=== PATIENT | female | born 1965 | race Caucasian/White ===

== ENCOUNTER 2016-12-02 10:49 | Inpatient (IN) | payer BC ==
[~2016-12-02] VITALS: Ht 160 cm; Wt 81.2 kg
[~2016-12-02 10:49] MED LIST: HYDR-79 PO; ONDA8TAB12 PO
[2016-12-02] MEDS ORDERED: IV NORMAL SALINE 1,000ML 1,000 ML IV SCH (11:10)
--- NOTE | 2016-12-02 11:13 | PHYS DOC ---
Past History Past Medical History: No Pertinent History, Other Past Surgical History: Cholecystectomy, Other Additional Past Surgical Histo: bariatric surgery Smoking: Cigarettes Alcohol Use: Occasionally Drug Use: Marijuana Adult General Chief Complaint Chief Complaint: NAUSEA/VOMITING/DIARRHEA HPI HPI Patient is a pleasant 51-year-old female with no major medical problems other than hypothyroidism on replacement therapy and depression, who presents with a 3 to four-day history of nausea vomiting diarrhea. She describes 3-4 episodes of nausea and vomiting nonbilious nonbloody and 3-4 episodes of nonbloody nonmucoid stool daily for last 3-4 days. She's had subjective fevers and chills with decreased oral intake secondary to inability tolerate fluids because of her gastric restrictive surgery she feels that she is dehydrated and unable to keep up with the vomiting episodes. Patient denies any particular sick contacts , travel outside the country, exposure to antibiotics or raw food consumption of fish, poultry or the handling of reptiles. She feels generally weak although she has no real abdominal pain, chest pain, shortness of breath and fatigue patient feels rundown Dr. Don is PCP Review of Systems Review of Systems Constitutional: Subjective for fevers and chills Eyes: Denies change in visual acuity, redness, or eye pain [] HENT: Denies nasal congestion or sore throat [] Respiratory: Denies cough or shortness of breath [] Cardiovascular: No additional information not addressed in HPI [] GI: Denies abdominal pain, but is having nausea vomiting nonbilious nonbloody, non-bloody or mucoid stool described as loose : Denies dysuria or hematuria [] Musculoskeletal: Denies back pain or joint pain [] Integument: Denies rash or skin lesions [] Neurologic: Denies headache, focal weakness or sensory changes [] Endocrine: Denies polyuria or polydipsia [] Current Medications Current Medications Current Medications Medications (Trade) Dose Ordered Sig/Vikas Start Time Stop Time Status Last Admin Dose Admin Ondansetron HCl (Zofran) 4 mg 1X ONCE 12/02/16 11:15 12/02/16 11:16 UNV Sodium Chloride (Normal Saline Flush) 10 ml QSHIFT PRN 12/02/16 11:15 UNV Allergies Allergies Allergies Coded Allergies Type Severity Reaction Last Updated Verified No Known Drug Allergies 01/03/16 No Physical Exam Physical Exam Patient noted to have hypertension and tachycardia Constitutional: Well developed, well nourished, no acute distress, non-toxic appearance. [] HENT: Normocephalic, atraumatic, bilateral external ears normal, oropharynx is dry, no oral exudates, nose normal. [] Eyes: PERRLA, EOMI, conjunctiva normal, Neck: Normal range of motion, no tenderness, supple, no stridor. [] Cardiovascular:Heart rate tachycardic regular rhythm normal heart sounds without murmurs gallops or rubs Lungs & Thorax: Bilateral breath sounds clear to auscultation [] Abdomen: Bowel sounds hyperactive soft nontender no masses no pulsatile masses no guarding rebound or organomegaly. Skin: Warm, dry, no erythema, no rash. [] Back: No tenderness, no CVA tenderness. [] Extremities: No tenderness, no cyanosis, no clubbing, ROM intact, no edema. [] Neurologic: Alert and oriented X 3, normal motor function, normal sensory function, no focal deficits noted. [] Psychologic: Affect normal, judgement normal, mood normal. [] EKG EKG [] Radiology/Procedures Radiology/Procedures [] Course & Med Decision Making Course & Med Decision Making Pertinent Labs and Imaging studies reviewed. (See chart for details) She presents with nausea vomiting diarrhea that began 4 days ago. She's had subjective fevers and chills and she is tachycardic because she has decreased oral intake. She takes alcohol on occasion she's never had a history of delirium tremens or other withdrawal symptoms. She's had a prior cholecystectomy and bariatric surgery but still complains of nonbilious nonbloody vomiting without epigastric pain. Time is now 12:30 pm Patient tells me that their symptoms given during CC are improved. Patient unfortunately has a low potassium of 2.7 likely secondary to emesis but unfortunately patient's. Lipase is elevated at 1200+. Patient has improved nausea without vomiting or diarrhea here in the emergency department but given her dehydration based on her urine creatinine it is my estimation the patient would benefit from GI evaluation, fluids and antiemetics as well as pain control. Differential diagnosis for pancreatitis includes but not limited to biliary tract disease, alcohol, drugs, scorpion bites, hyperlipidemia, instrumentation, trauma, Plate Glass Installer Helper note: Dr. Fuller Plate Glass Installer Helper called at of the service paged initially 12:39 PM Consult called back at 12:40 PM Discussed the case I presented and they agreed with admission. Time of acceptance 12:40 PM the plan is to keep patient nothing by mouth replace fluids and a electrolytes by intravenous means provide her pain medications and possible GI evaluation here in the hospital. [] Dragon Disclaimer Dragon Disclaimer This chart was dictated in whole or in part using Voice Recognition software in a busy, high-work load, and often noisy Emergency Department environment. It may contain unintended and wholly unrecognized errors or omissions. Departure Departure: Impression: Primary Impression: Pancreatitis Additional Impressions: Intractable nausea and vomiting Diarrhea Abdominal pain Hypokalemia Dehydration Disposition: 09 ADMITTED INPATIENT Admitting Physician: Kimberly Fuller Referrals: JOSEMANUEL KNAPP (PCP) Problem Qualifiers TAMMIE MAGAÑA MD Dec 02, 2016 11:13
[2016-12-02] MEDS ORDERED: 0.9 % SODIUM CHLORIDE 10 ML DISP.SYRIN. IV PRN (11:15)
[2016-12-02] MEDS ORDERED: ONDANSETRON PF 4 MG/2 ML VIAL. IV ONE (11:15)
[2016-12-02 11:32] LABS: BASO % 0 % (0-3); EOS % 0 % (0-3); LYMPH # 1.2 x10^3/uL (1.0-4.8); LYMPH % 14 % (24-48); MEAN CORPUSCULAR HEMOGLOBIN 30 pg (25-35); MEAN CORPUSCULAR HGB CONC 35 g/dL (31-37); MEAN CORPUSCULAR VOLUME 85 fL (79-100); MONO # 1.1 x10^3/uL (0.0-1.1); MONO % 13 % (0-9); NEUT # 6.4 x10^3uL (1.8-7.7); NEUT % 73 % (31-73); PLATELET COUNT 162 x10^3/uL (140-400); RED BLOOD COUNT 5.64 x10^6/uL (3.50-5.40); RED CELL DISTRIBUTION WIDTH 12.8 % (11.5-14.5); WHITE BLOOD COUNT 8.7 x10^3/uL (4.0-11.0)
[2016-12-02 11:42] LABS: ALBUMIN 3.9 g/dL (3.4-5.0); CALCIUM 9.7 mg/dL (8.5-10.1); CREATININE 1.1 mg/dL (0.6-1.0); GFR 52.2; TOTAL BILIRUBIN 0.4 mg/dL (0.2-1.0); TOTAL PROTEIN 7.9 g/dL (6.4-8.2)
[2016-12-02 11:45] LABS: POTASSIUM 2.7 mmol/L (3.5-5.1)
[2016-12-02] MEDS ORDERED: POTASSIUM CHLORIDE 20 MEQ TABLET.ER. PO ONE (12:45)
[2016-12-02 12:49] LABS: BACTERIA,URINE FEW /HPF (0-FEW); BILIRUBIN,URINE NEG (NEG); CLARITY,URINE CLOUDY; COLOR,URINE AMBER; GLUCOSE,URINE NEG (NEG); NITRITE,URINE NEG (NEG); UROBILINOGEN,URINE 0.2 mg/dL (0.2 mg/dL)
[2016-12-02 12:50] LABS: GRANULAR CASTS,URINE OCC /HPF; HYALINE CASTS, URINE MOD /HPF; SQUAMOUS EPITHELIAL CELL,UR FEW /LPF
[2016-12-02] MEDS ORDERED: HYDROmorphone PF 1 MG/ML DISP.SYRIN IV PRN (13:15)
[2016-12-02] MEDS ORDERED: ONDANSETRON PF 4 MG/2 ML VIAL. IV PRN (13:15)
[2016-12-02] MEDS: IV NORMAL SALINE 1,000ML 1,000 ML IV SCH ×2 (13:15→20:35)
[2016-12-02] MEDS: NICOTINE 21MG PATCH. TD SCH (14:30)
[2016-12-02 15:00] VITALS: BP 127/81
[2016-12-02] MEDS ORDERED: ARIP10TA9 PO (15:35)
[2016-12-02] MEDS ORDERED: SERT50TA PO (15:35)
[2016-12-02] MEDS ORDERED: LEVO175T5 PO (15:35)
[2016-12-02] MEDS ORDERED: ALPR0.5T PO (15:35)
[2016-12-02] MEDS ORDERED: chlordiazePOXIDE HCL 25 MG CAPSULE PO PRN ×2 (16:45)
[2016-12-02] MEDS: MVI, ADULT NO.4 WITH VIT K 10 ML, FOLIC ACID 1 MG, THIAMINE 100 MG, POTASSIUM CHLORIDE ... IV SCH ×5 (16:52)
[2016-12-02 17:53] VITALS: BP 129/81
[2016-12-02 18:23] LABS: ALBUMIN 3.3 g/dL (3.4-5.0); DIRECT BILIRUBIN 0.1 mg/dL (0.0-0.2); TOTAL BILIRUBIN 0.3 mg/dL (0.2-1.0); TOTAL PROTEIN 6.6 g/dL (6.4-8.2)
[2016-12-02] MEDS: ALPRAZolam 0.5 MG TABLET PO SCH (18:34)
[2016-12-02 19:28] VITALS: BP 130/85
[2016-12-02] MEDS: POTASSIUM CHLORIDE 20 MEQ TABLET.ER. PO SCH (20:33)
[2016-12-02] MEDS: ARIPiprazole 10 MG TABLET PO SCH (20:33)
[2016-12-02 23:15] VITALS: BP 123/59
[2016-12-03] MEDS: IV NORMAL SALINE 1,000ML 1,000 ML IV SCH ×2 (02:49→09:04)
[2016-12-03 05:45] VITALS: BP 140/88
[2016-12-03 06:17] LABS: ALBUMIN 2.9 g/dL (3.4-5.0); ALBUMIN/GLOBULIN RATIO 0.9 (1.0-1.7); CALCIUM 8.5 mg/dL (8.5-10.1); CREATININE 0.6 mg/dL (0.6-1.0); POTASSIUM 3.5 mmol/L (3.5-5.1); TOTAL BILIRUBIN 0.3 mg/dL (0.2-1.0)
[2016-12-03 06:19] LABS: BASO % 0 % (0-3); EOS % 0 % (0-3); LYMPH # 1.4 x10^3/uL (1.0-4.8); LYMPH % 20 % (24-48); MEAN CORPUSCULAR HEMOGLOBIN 30 pg (25-35); MEAN CORPUSCULAR HGB CONC 35 g/dL (31-37); MEAN CORPUSCULAR VOLUME 86 fL (79-100); MONO # 0.9 x10^3/uL (0.0-1.1); MONO % 13 % (0-9); NEUT # 4.8 x10^3uL (1.8-7.7); NEUT % 67 % (31-73); PLATELET COUNT 152 x10^3/uL (140-400); RED BLOOD COUNT 4.66 x10^6/uL (3.50-5.40); RED CELL DISTRIBUTION WIDTH 12.7 % (11.5-14.5); WHITE BLOOD COUNT 7.1 x10^3/uL (4.0-11.0)
[2016-12-03] MEDS: LEVOTHYROXINE 175 MCG TABLET PO SCH (07:50)
[2016-12-03] MEDS: ARIPiprazole 10 MG TABLET PO SCH ×3 (07:50→21:52)
[2016-12-03] MEDS: POTASSIUM CHLORIDE 20 MEQ TABLET.ER. PO SCH ×2 (07:51→18:02)
[2016-12-03] MEDS: NICOTINE 21MG PATCH. TD SCH (07:51)
[2016-12-03] MEDS ORDERED: MVI, ADULT NO.4 WITH VIT K 10 ML, THIAMINE 100 MG, FOLIC ACID 1 MG in IV NORMAL SALINE ... IV SCH ×4 (09:00)
[2016-12-03] MEDS ORDERED: PNEUMOC CONJ VACC 23-VALENT 0.5 ML VIAL. VAX IM ONE (09:00)
[2016-12-03] MEDS ORDERED: SERTRALINE 50 MG TABLET. PO SCH ×2 (09:00)
[2016-12-03] MEDS ORDERED: FLU VACC QS2017-18 (36MOS+)/PF 0.5 ML SYRINGE. VAX IM ONE (09:00)
--- NOTE | 2016-12-03 09:40 | HP ---
ADMIT DATE: 12/02/2016 CHIEF COMPLAINT: Nausea, vomiting, and diarrhea. HISTORY OF PRESENT ILLNESS: This is a 51-year-old female who presented to the Emergency Room with 3-4 day history of nausea, vomiting, diarrhea, chills, sweats, and fever. Denies abdominal pain. Because she has a gastric sleeve and was unable to keep up with her fluids, felt she was dehydrated and so came to the hospital. PAST MEDICAL HISTORY: The patient has hypothyroidism, history of morbid obesity, and Depression. PAST SURGICAL HISTORY: Bariatric sleeve 06/2016. She actually has lost 45 pounds. MEDICATIONS: Reviewed and are available on the MAR. 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 She does have significant problem with alcohol drinking 6-8 drinks a day. She is a former alcoholic and then has had a relapse. She smokes 1 pack per day and also smokes marijuana. REVIEW OF SYSTEMS: As per HPI, but has continued to have some depression and difficulty giving up alcohol, has lost 45 pounds from the gastric sleeve. OBJECTIVE: VITAL SIGNS: Blood pressure 140/88, pulse 77, respirations 18, pulse ox 99% on room air, height 63 inches, and weight 176.31 pounds. GENERAL: Pleasant 51-year-old in no acute distress. HEENT: Her hearing is normal. Her pupils were equal, round, and react to light. Extraocular muscles are intact. Nose is patent. Throat was clear. Tongue was moist. NECK: Supple. LUNGS: Clear to auscultation. CARDIOVASCULAR: Regular rhythm and rate. ABDOMEN: Soft. Bowel sounds are active. No tenderness was palpated. EXTREMITIES: Without edema. NEUROLOGIC: No tremors noted. She is alert and oriented. LABORATORY DATA: CBC, hemoglobin 14.0, hematocrit 40.0 down from 17.0 and 48.0. Chemistry, initial potassium was 2.7 and now is 3.5; magnesium 1.8, lipase has gone from 1283 to 3150. Urinalysis is negative. HCG negative. ASSESSMENT: 1. Acute gastroenteritis with nausea, vomiting, and diarrhea 2. Alcohol use disorder. 3. Questionable pancreatitis-the patient has no abdominal pain, but we will check a CT scan as her lipase is doubled. 4. Hypothyroidism-present on admission. 5. Marijuana use. 6. Tobacco use disorder. 7. History of morbid obesity now with bariatric sleeve. PLAN: IV fluids and alcohol withdrawal protocol. Counseled regarding daily alcohol use and will be getting a CAT scan of the abdomen. GEENA ELIZALDE DO DR: LENARD/maureen JOB#: [id number] / [id number]
[2016-12-03] MEDS ORDERED: ALPRAZolam 0.5 MG TABLET PO PRN (10:30)
[2016-12-03 12:31] VITALS: BP 109/72
--- NOTE | 2016-12-03 12:52 | RAD ---
CT abdomen/pelvis Indication: Pancreatitis, increased lipase. Technique: CT abdomen/pelvis with 75 mL of Omnipaque 300 and 30 mL of Omnipaque 240 by mouth with multi planar reformats. Comparison: None Findings: Heart is normal in size. No pericardial or pleural effusion. Mild subsegmental atelectasis in the lung bases. Liver is normal in morphology. Spleen within normal limits. Status post cholecystectomy. Adrenal glands within normal limits. Kidneys within normal limits. No peripancreatic inflammatory changes or focal pancreatic mass. Mild prominence of pancreatic duct without apparent dilation. No peripancreatic fluid collection. The pancreas demonstrates diffuse homogeneous enhancement. The portal vein, splenic vein, splenic artery, SMV are patent. Shotty mesenteric and retroperitoneal lymph nodes. Right lower quadrant lymph nodes noted which are enlarged, the larges measuring 1.4 x 1.0 cm (series 2 image 80). No bowel obstruction. Appendix is not visualized. Postsurgical changes from partial gastrectomy. The uterus is nonvisualized likely surgically absent. Bladder is decompressed limiting optimal evaluation. No solid adnexal lesions. No suspicious bony lesions. Impression: 1. No peripancreatic inflammatory changes or fluid collection. 2. Mildly enlarged right lower quadrant lymph nodes may suggest mesenteric adenitis. Clinically correlate. PQRS Compliance Statement: One or more of the following individualized dose reduction techniques were utilized for this examination: 1. Automated exposure control 2. Adjustment of the mA and/or kV according to patient size 3. Use of iterative reconstruction technique
[2016-12-03] MEDS: LOPERAMIDE 2 MG CAPSULE PO PRN ×2 (14:06→18:06)
[2016-12-03] MEDS: ALPRAZolam 0.25 MG TABLET PO PRN ×2 (14:35→18:45)
[2016-12-03] MEDS: ALPRAZolam 0.5 MG TABLET PO SCH (16:00)
[2016-12-03] MEDS: MVI, ADULT NO.4 WITH VIT K 10 ML, FOLIC ACID 1 MG, THIAMINE 100 MG, POTASSIUM CHLORIDE ... IV SCH ×5 (18:02)
[2016-12-03 19:01] VITALS: BP 139/81
[2016-12-04 06:35] LABS: BASO % 0 % (0-3); EOS % 0 % (0-3); HEMATOCRIT 40.9 % (36.0-47.0); HEMOGLOBIN 14.3 g/dL (12.0-15.5); LYMPH # 1.2 x10^3/uL (1.0-4.8); LYMPH % 20 % (24-48); MEAN CORPUSCULAR HEMOGLOBIN 30 pg (25-35); MEAN CORPUSCULAR HGB CONC 35 g/dL (31-37); MEAN CORPUSCULAR VOLUME 85 fL (79-100); MONO % 16 % (0-9); NEUT # 3.9 x10^3uL (1.8-7.7); NEUT % 63 % (31-73); PLATELET COUNT 173 x10^3/uL (140-400); RED CELL DISTRIBUTION WIDTH 12.9 % (11.5-14.5); WHITE BLOOD COUNT 6.1 x10^3/uL (4.0-11.0)
[2016-12-04 06:43] LABS: ALBUMIN 3.1 g/dL (3.4-5.0); ALBUMIN/GLOBULIN RATIO 0.9 (1.0-1.7); CREATININE 0.6 mg/dL (0.6-1.0); MAGNESIUM 1.7 mg/dL (1.8-2.4); TOTAL BILIRUBIN 0.3 mg/dL (0.2-1.0); TOTAL PROTEIN 6.4 g/dL (6.4-8.2)
[2016-12-04 07:45] VITALS: BP 115/64
[2016-12-04] MEDS: ARIPiprazole 10 MG TABLET PO SCH (07:52)
[2016-12-04] MEDS: LEVOTHYROXINE 175 MCG TABLET PO SCH (08:01)
[2016-12-04] MEDS: POTASSIUM CHLORIDE 20 MEQ TABLET.ER. PO SCH (08:01)
[2016-12-04] MEDS: NICOTINE 21MG PATCH. TD SCH (08:02)
[2016-12-04] MEDS ORDERED: Nicotine 21MG TD (08:40)
[2016-12-04] MEDS ORDERED: ALPR0.254 PO (08:40)
[2016-12-04] MEDS ORDERED: SERTRALINE 100 MG TABLET. PO SCH (09:00)
[2016-12-04] MEDS ORDERED: PNEUMOC CONJ VACC 23-VALENT 0.5 ML VIAL. VAX IM ONE (09:00)
[2016-12-04] MEDS ORDERED: FLU VACC QS2017-18 (36MOS+)/PF 0.5 ML SYRINGE. VAX IM ONE (09:00)
--- NOTE | 2016-12-04 13:53 | DS ---
DATE OF DISCHARGE: 12/04/2016 DISCHARGE DIAGNOSES: 1. Nausea, vomiting and diarrhea, resolved. 2. Acute pancreatitis. 3. Alcohol use disorder. 4. Depression. 5. Marijuana use. 6. Daily alcohol use. 7. History of morbid obesity status post gastric sleeve. 8. Hypothyroidism, present on admission. 9. Dehydration, resolved. 10. Hypokalemia, resolved. HOSPITAL COURSE: A 51-year-old female who presented to the Emergency Room with a 3 to 4 day history of nausea, vomiting, diarrhea and chills. She was found to be dehydrated and have an elevated lipase. The lipase actually doubled the next day, but she had minimal abdominal pain and just mesenteric adenitis on her CAT scan. However, with her drinking history, this seems probable diagnosis of acute pancreatitis. She was on clear liquids for the most of her stay because she could not tolerate a solid diet. I discussed extensively her alcohol use, her depression and her marijuana use, and the options for that. I encouraged her to see ____ for alcoholism and she seemed interested in that. I gave her 20 Xanax 0.25 to help her with any further withdrawal from alcohol that she may have this week. For further refills, she will have to see ____. She left in good condition and for medication, see [facility]. GEENA ELIZALDE DO DR: LENARD/maureen JOB#: [id number] / [id number]
== END 2016-12-04 09:24 | disposition home or self-care (01) | DRG 440 ==
LOC: ER 10:49 → ICU 13:09
PROVIDERS: ADMIT Internal Medicine; ATTEND Internal Medicine
DX: K85.90 Acute pancreatitis without necrosis or infection, unspecified (principal); E66.01 Morbid (severe) obesity due to excess calories; E03.9 Hypothyroidism, unspecified; E86.0 Dehydration; E87.6 Hypokalemia; I88.0 Nonspecific mesenteric lymphadenitis; F12.90 Cannabis use, unspecified, uncomplicated; F17.210 Nicotine dependence, cigarettes, uncomplicated; F32.9 Major depressive disorder, single episode, unspecified; Z98.84 Bariatric surgery status; Z68.31 Body mass index [BMI] 31.0-31.9, adult; Z90.49 Acquired absence of other specified parts of digestive tract; Z72.89 Other problems related to lifestyle; Z71.41 Alcohol abuse counseling and surveillance of alcoholic
CPT/HCPCS: 36415; 74177; 80053; 80076; 81001; 81025; 83690; 83735; 84478; 85025; 87177; 87324; 87641; 90686; 90732; 96361; 96374; 99406; J2405; 99285-25; J7030

== ENCOUNTER 2018-02-24 20:06 | Emergency (ER) | payer BC ==
[~2018-02-24] VITALS: Ht 160 cm; Wt 71.2 kg
[~2018-02-24 20:06] MED LIST changes: +ALPR0.254 PO; +ALPR0.5T PO; +ARIP10TA9 PO; +HYDR-1179 PO; -HYDR-79 PO; +LEVO175T5 PO; +Nicotine 21MG TD; +SERT50TA PO
[2018-02-24] MEDS: LOPERAMIDE 2 MG CAPSULE PO ONE (20:41)
[2018-02-24] MEDS: ONDANSETRON PF 4 MG/2 ML VIAL. IV ONE (20:41)
[2018-02-24] MEDS: IV NORMAL SALINE 1,000ML 1,000 ML IV ONE (20:41)
--- NOTE | 2018-02-24 20:43 | PHYS DOC ---
Past History Past Medical History: Depression, GERD, Hypothyroid Past Surgical History: Cholecystectomy, Other Additional Past Surgical Histo: bariatric surgery Smoking: Cigarettes Alcohol Use: Rarely Drug Use: None Adult General Chief Complaint Chief Complaint: NAUSEA/VOMITING/DIARRHEA HPI HPI 52-year-old female presents with diarrhea, vomiting, and epigastric abdominal pain. Patient states that she has had watery diarrhea all day. About 2 hours ago she began have vomiting followed by upper abdominal cramping. She states that it feels like her stomach is churning or having spasms. She does not recall having pain like this before. She does not have a gallbladder. She had gastric sleeve many years ago. She takes omeprazole daily. She does not typically have trouble with reflux. Patient does not have any known sick contacts. She has had pancreatitis due to alcohol in the past. She stopped drinking alcohol 18 days ago. She has not taken any medications for her current ailment. She denies fever or chills. Review of Systems Review of Systems Constitutional: Denies fever or chills [] Eyes: Denies change in visual acuity, redness, or eye pain [] HENT: Denies nasal congestion or sore throat [] Respiratory: Denies cough or shortness of breath [] Cardiovascular: No additional information not addressed in HPI [] GI: Abdominal pain, nausea, vomiting, watery diarrhea [] : Denies dysuria or hematuria [] Musculoskeletal: Denies back pain or joint pain [] Integument: Denies rash or skin lesions [] Neurologic: Denies headache, focal weakness or sensory changes [] Endocrine: Denies polyuria or polydipsia [] All other systems were reviewed and found to be within normal limits, except as documented in this note. Current Medications Current Medications Current Medications Medications (Trade) Dose Ordered Sig/Vikas Start Time Stop Time Status Last Admin Dose Admin Loperamide HCl (Imodium) 2 mg 1X ONCE 02/24/18 20:30 02/24/18 20:31 DC Ondansetron HCl (Zofran) 4 mg 1X ONCE 02/24/18 20:30 02/24/18 20:31 DC Sodium Chloride 1,000 ml @ 1,000 mls/hr 1X ONCE 02/24/18 20:30 02/24/18 21:29 Allergies Allergies Allergies Coded Allergies Type Severity Reaction Last Updated Verified No Known Drug Allergies 01/03/16 No Physical Exam Physical Exam Constitutional: Well developed, well nourished, no acute distress, non-toxic appearance. [] HENT: Normocephalic, atraumatic, bilateral external ears normal, oropharynx moist, no oral exudates, nose normal. [] Eyes: PERRLA, EOMI, conjunctiva normal, no discharge. [] Neck: Normal range of motion, no tenderness, supple, no stridor. [] Cardiovascular:Heart rate regular rhythm, no murmur [] Lungs & Thorax: Bilateral breath sounds clear to auscultation [] Abdomen: Soft, mild epigastric tenderness, no masses, no pulsatile masses. [] Skin: Warm, dry, no erythema, no rash. [] Back: No tenderness, no CVA tenderness. [] Extremities: No tenderness, no cyanosis, no clubbing, ROM intact, no edema. [] Neurologic: Alert and oriented X 3, normal motor function, normal sensory function, no focal deficits noted. [] Psychologic: Affect normal, judgement normal, mood normal. [] EKG EKG [] Radiology/Procedures Radiology/Procedures [] Impressions: INDICATION: EPIGASTRIC ABDOMINAL PAIN, CRAMPING, DIARRHEA ONSET TODAY. 75MLS OMNI 300 IV CONTRAST COMPARISON: December 2016 TECHNIQUE: Axial CT images obtained through the abdomen and pelvis with contrast. One or more of the following individualized dose reduction techniques were utilized for this examination: 1. Automated exposure control; 2. Adjustment of the mA and/or kV according to patient size; 3. Use of iterative reconstruction technique. FINDINGS: Abdominal aorta is not aneurysmal. Bile duct dilation is seen postcholecystectomy. No peripancreatic fluid collection. Spleen is unremarkable. Urinary bladder is largely decompressed. No left-sided hydronephrosis. No right-sided hydronephrosis. Numerous calcifications in bilateral hemipelvis. There are some mildly prominent lymph nodes in the right lower quadrant. There are few mildly prominent walled loops of small bowel left upper quadrant. Degenerative changes of spine with osteophyte formation. IMPRESSION: 1. Bile duct dilation is identified. This is a common finding post cholecystectomy but does appear more prominent than prior. Would correlate with symptoms and lab markers to ensure that there is not a pathologic process such as a distal stricture or stone. 2. Mild prominence the wall of a few loops of small bowel on the left upper quadrant. Could be a region of contraction but cannot exclude pathologic causes such as enteritis. 3. Numerous calcifications the bilateral hemipelvis. Could be secondary to phleboliths. Electronically signed by: Neeta Neal MD (02/24/2018 10:10 PM) [facility] DICTATED AND SIGNED BY: NEETA NEAL MD DATE: 02/24/182201 CC: FINN VILLEGAS DO; JOSEMANUEL KNAPP ~ Course & Med Decision Making Course & Med Decision Making Pertinent Labs and Imaging studies reviewed. (See chart for details) Asians labs are unremarkable. Her troponin is negative. Her EKG is unremarkable. Her urinalysis is negative for infection. The patient had the pain migrating up into her chest so troponin and EKG were ordered. I give the patient Zofran and 1 mg of Dilaudid for her pain. She was able to fall asleep for a while and when she woke up she stated that her pain was significantly improved. Her CT scan does show possible enteritis. This is likely a viral gastroenteritis. I will discharge her with a prescription for Zofran and recommend supportive care at home. Patient is stable for discharge at this time. [] Dragon Disclaimer Dragon Disclaimer This electronic medical record was generated, in whole or in part, using a voice recognition dictation system. Departure Departure: Referrals: JOSEMANUEL KNAPP (PCP) FINN VILLEGAS DO Feb 24, 2018 20:43
[2018-02-24 21:12] LABS: BASO % 0 % (0-3); EOS % 0 % (0-3); HEMATOCRIT 40.1 % (36.0-47.0); HEMOGLOBIN 13.7 g/dL (12.0-15.5); LYMPH # 0.8 x10^3/uL (1.0-4.8); LYMPH % 8 % (24-48); MEAN CORPUSCULAR HEMOGLOBIN 30 pg (25-35); MEAN CORPUSCULAR HGB CONC 34 g/dL (31-37); MEAN CORPUSCULAR VOLUME 87 fL (79-100); MONO # 0.5 x10^3/uL (0.0-1.1); MONO % 5 % (0-9); NEUT # 8.3 x10^3uL (1.8-7.7); NEUT % 86 % (31-73); PLATELET COUNT 149 x10^3/uL (140-400); RED BLOOD COUNT 4.63 x10^6/uL (3.50-5.40); RED CELL DISTRIBUTION WIDTH 12.7 % (11.5-14.5); WHITE BLOOD COUNT 9.6 x10^3/uL (4.0-11.0)
[2018-02-24 21:24] LABS: ALBUMIN 3.3 g/dL (3.4-5.0); CALCIUM 8.2 mg/dL (8.5-10.1); CREATININE 0.8 mg/dL (0.6-1.0); TOTAL BILIRUBIN 0.3 mg/dL (0.2-1.0); TOTAL PROTEIN 6.5 g/dL (6.4-8.2)
[2018-02-24] MEDS: IOHEXOL 300 MG/ML 75 ML VIAL. IV ONE (21:42)
[2018-02-24] MEDS ORDERED: CONTRAST GIVEN MC PRN (21:45)
[2018-02-24 22:02] LABS: BACTERIA,URINE MOD /HPF (0-FEW); BILIRUBIN,URINE NEG (NEG); CLARITY,URINE HAZY; COLOR,URINE YELLOW; GLUCOSE,URINE NEG (NEG); NITRITE,URINE NEG (NEG); RBC,URINE 0 /HPF (0-2); SQUAMOUS EPITHELIAL CELL,UR FEW /LPF; UROBILINOGEN,URINE 0.2 mg/dL (0.2 mg/dL)
[2018-02-24] MEDS: HYDROmorphone PF 1 MG/ML DISP.SYRIN IV ONE (22:04)
[2018-02-24] MEDS: DICYCLOMINE HCL 20 MG TABLET PO ONE (22:04)
--- NOTE | 2018-02-24 22:09 | EKG ---
[address] [address] Test Date: 2018-02-24 Test Time: 22:01:47 Pat Name: GARRISON NORTON Department: Room: Gender: F Bulk Loader: : 1965 Requested By: FINN VILLEGAS Order Number: [id number] Reading MD: Measurements Intervals Wilsey Rate: 92 P: 127 MD: 152 QRS: 179 QRSD: 94 T: 126 QT: 372 QTc: 465 Interpretive Statements SUPRAVENTRICULAR RHYTHM ABNORMAL RIGHT AXIS DEVIATION QRS(T) CONTOUR ABNORMALITY CONSIDER ANTEROSEPTAL MYOCARDIAL DAMAGE CONSISTENT WITH HIGH LATERAL INFARCT AGE UNDETERMINED ABNORMAL ECG RI6.01 Unconfirmed report No previous ECG available for comparison
--- NOTE | 2018-02-24 22:14 | RAD ---
INDICATION: EPIGASTRIC ABDOMINAL PAIN, CRAMPING, DIARRHEA ONSET TODAY. 75MLS OMNI 300 IV CONTRAST COMPARISON: December 2016 TECHNIQUE: Axial CT images obtained through the abdomen and pelvis with contrast. One or more of the following individualized dose reduction techniques were utilized for this examination: 1. Automated exposure control; 2. Adjustment of the mA and/or kV according to patient size; 3. Use of iterative reconstruction technique. FINDINGS: Abdominal aorta is not aneurysmal. Bile duct dilation is seen postcholecystectomy. No peripancreatic fluid collection. Spleen is unremarkable. Urinary bladder is largely decompressed. No left-sided hydronephrosis. No right-sided hydronephrosis. Numerous calcifications in bilateral hemipelvis. There are some mildly prominent lymph nodes in the right lower quadrant. There are few mildly prominent walled loops of small bowel left upper quadrant. Degenerative changes of spine with osteophyte formation. IMPRESSION: 1. Bile duct dilation is identified. This is a common finding post cholecystectomy but does appear more prominent than prior. Would correlate with symptoms and lab markers to ensure that there is not a pathologic process such as a distal stricture or stone. 2. Mild prominence the wall of a few loops of small bowel on the left upper quadrant. Could be a region of contraction but cannot exclude pathologic causes such as enteritis. 3. Numerous calcifications the bilateral hemipelvis. Could be secondary to phleboliths. Electronically signed by: Ventura Neal MD (02/24/2018 10:10 PM) [facility]
[2018-02-24] MEDS: ASPIRIN 81 MG TAB.CHEW PO ONE (22:20)
[2018-02-24] MEDS ORDERED: ONDA4TAB12 PO (23:15)
[2018-02-24 23:25] VITALS: BP 126/53
[2018-02-24] MEDS ORDERED: TRAM50TA PO (23:32)
--- NOTE | 2018-02-25 01:29 | RAD ---
Chest AP portable 02/24/2018. Reason for exam: Epigastric and chest pain. No infiltrate or effusion is seen. Heart size and pulmonary vascularity appear normal. IMPRESSION: No acute disease. Electronically signed by: Bahman Pirece Jr., MD (02/25/2018 1:25 AM) [facility]
== END 2018-02-24 23:30 | disposition home or self-care (01) ==
LOC: ER 20:06
DX: R10.13 Epigastric pain (principal); R11.2 Nausea with vomiting, unspecified; R19.7 Diarrhea, unspecified; K91.5 Postcholecystectomy syndrome; K21.9 Gastro-esophageal reflux disease without esophagitis; E03.9 Hypothyroidism, unspecified; F17.210 Nicotine dependence, cigarettes, uncomplicated; Z90.49 Acquired absence of other specified parts of digestive tract
CPT/HCPCS: 36415; 71045; 74177; 80053; 81001; 83690; 84484; 85025; 87086; 93005; 96361; 96374; 96375; 99284; J1170; J2405; Q9967; J7030

== ENCOUNTER 2018-11-27 08:58 | Emergency (ER) | payer BC ==
[~2018-11-27] VITALS: Ht 160 cm; Wt 87.5 kg
[~2018-11-27 08:58] MED LIST changes: +ONDA4TAB12 PO; +TRAM50TA PO
[2018-11-27] MEDS ORDERED: IV NORMAL SALINE 1,000ML 1,000 ML IV SCH (09:10)
--- NOTE | 2018-11-27 09:18 | PHYS DOC ---
Past History Past Medical History: Depression, Hypothyroid Past Surgical History: Hysterectomy, Tonsillectomy Additional Past Surgical Histo: bariatric surgery Smoking: Cigarettes Alcohol Use: None Drug Use: None Adult General Chief Complaint Chief Complaint: CHEST PAIN HPI HPI Patient is a 53-year-old female who presents with complaint of left lateral chest discomfort that she describes as sharp and stabbing in nature. Patient states the pain started about 2 weeks ago but was constant since last night. She states that pain is worsened with breathing with certain movements and with palpation. She denies any shortness of breath, nausea or vomiting. Patient states that nothing really helps with the pain. Patient rates pain at a 7 out of 10.[] Review of Systems Review of Systems Constitutional: Denies fever or chills [] Respiratory: Denies cough or shortness of breath [] Cardiovascular: No additional information not addressed in HPI [] GI: Denies abdominal pain, nausea, vomiting or diarrhea [] Musculoskeletal: Patient admits to left-sided mid thoracic pain [] Integument: Denies rash or skin lesions [] Neurologic: Denies headache, focal weakness or sensory changes [] All other systems were reviewed and found to be within normal limits, except as documented in this note. Current Medications Current Medications Current Medications Medications (Trade) Dose Ordered Sig/Vikas Start Time Stop Time Status Last Admin Dose Admin Ketorolac Tromethamine (Toradol 30mg Vial) 30 mg 1X ONCE 11/27/18 09:15 11/27/18 09:16 UNV Sodium Chloride 1,000 ml @ 1,000 mls/hr Q1H 11/27/18 09:10 11/27/18 10:09 UNV Allergies Allergies Allergies Coded Allergies Type Severity Reaction Last Updated Verified No Known Drug Allergies 01/03/16 No Physical Exam Physical Exam Constitutional: Well developed, well nourished, no acute distress, non-toxic appearance. [] HENT: Normocephalic, atraumatic, bilateral external ears normal, oropharynx moist, no oral exudates, nose normal. [] Eyes: PERRLA, EOMI, conjunctiva normal, no discharge. [] Neck: Normal range of motion, no tenderness, supple, no stridor. [] Cardiovascular: Regular rate and rhythm. There is reproducible tenderness to palpation in the lateral and anterior lateral rib margin of rib 9[] Lungs & Thorax: Bilateral breath sounds clear to auscultation [] Abdomen: Bowel sounds normal, soft, no tenderness. [] Skin: Warm, dry, no erythema, no rash. [] Extremities: No tenderness, no cyanosis, no clubbing, ROM intact, no edema. [] Neurologic: Alert and oriented X 3, no focal deficits noted. [] EKG EKG EKG demonstrates normal sinus rhythm with rate of 74.[] Radiology/Procedures Radiology/Procedures [] Impressions: PROCEDURE: PORTABLE CHEST 1V Examination: PORTABLE CHEST 1V History: Chest pain Comparison/Correlation: None Findings: Portable upright frontal view of the chest was obtained. Heart size and pulmonary vasculature are normal. No infiltrate or effusion. Bony structures are unremarkable. No pneumothorax. Impression: No active disease. Electronically signed by: Will Frances MD (11/27/2018 9:45 AM) [facility] Course & Med Decision Making Course & Med Decision Making Pertinent Labs and Imaging studies reviewed. (See chart for details) [] Dragon Disclaimer Dragon Disclaimer This electronic medical record was generated, in whole or in part, using a voice recognition dictation system. Departure Departure: Impression: Primary Impression: Costochondritis Disposition: 01 HOME, SELF-CARE Condition: STABLE Referrals: JOSEMANUEL KNAPP (PCP) Patient Instructions: Costochondritis Scripts Diclofenac Sodium (DICLOFENAC SODIUM) 50 Mg Tablet.dr 1 TAB PO BID PRN for PAIN, #20 TAB Prov: GIOVANNY ADAM Jr. DO 11/27/18 Tramadol Hcl (TRAMADOL HCL) 50 Mg Tablet 50 MG PO PRN Q6HRS PRN for PAIN, #12 TAB Prov: GIOVANNY ADAM Jr. DO 11/27/18 Methylprednisolone (MEDROL) 4 Mg Tab.ds.pk 1 PKG PO UD for inflammation, #1 PKG Prov: GIOVANNY ADAM Jr. DO 11/27/18 GIOVANNY ADAM Jr. DO Nov 27, 2018 09:18
[2018-11-27] MEDS ORDERED: KETOROLAC 30 MG/ML VIAL. IV ONE (09:30)
[2018-11-27 09:40] LABS: BASO % 0 % (0-3); EOS % 0 % (0-3); HEMATOCRIT 43.6 % (36.0-47.0); HEMOGLOBIN 14.8 g/dL (12.0-15.5); LYMPH # 2.2 x10^3/uL (1.0-4.8); LYMPH % 20 % (24-48); MEAN CORPUSCULAR HEMOGLOBIN 29 pg (25-35); MEAN CORPUSCULAR HGB CONC 34 g/dL (31-37); MEAN CORPUSCULAR VOLUME 85 fL (79-100); MONO % 9 % (0-9); NEUT # 7.8 x10^3uL (1.8-7.7); NEUT % 70 % (31-73); PLATELET COUNT 265 x10^3/uL (140-400); RED BLOOD COUNT 5.14 x10^6/uL (3.50-5.40); RED CELL DISTRIBUTION WIDTH 13.1 % (11.5-14.5); WHITE BLOOD COUNT 11.1 x10^3/uL (4.0-11.0)
--- NOTE | 2018-11-27 09:47 | RAD ---
Examination: PORTABLE CHEST 1V History: Chest pain Comparison/Correlation: None Findings: Portable upright frontal view of the chest was obtained. Heart size and pulmonary vasculature are normal. No infiltrate or effusion. Bony structures are unremarkable. No pneumothorax. Impression: No active disease. Electronically signed by: Will Frances MD (11/27/2018 9:45 AM) [facility]
[2018-11-27 10:02] LABS: ALBUMIN 4.2 g/dL (3.4-5.0); ALBUMIN/GLOBULIN RATIO 1.4 (1.0-1.7); CREATININE 1.1 mg/dL (0.6-1.0); GFR 51.8; MAGNESIUM 2.2 mg/dL (1.8-2.4); POTASSIUM 3.8 mmol/L (3.5-5.1); TOTAL BILIRUBIN 0.4 mg/dL (0.2-1.0); TOTAL PROTEIN 7.2 g/dL (6.4-8.2)
[2018-11-27] MEDS ORDERED: DICL50TA4 PO (10:26)
[2018-11-27] MEDS ORDERED: METH4TAB2 PO (10:26)
[2018-11-27] MEDS ORDERED: TRAM50TA PO (10:26)
[2018-11-27 10:47] VITALS: BP 150/106
--- NOTE | 2018-11-27 11:41 | EKG ---
[address] [address] Test Date: 2018-11-27 Test Time: 09:04:05 Pat Name: GARRISON NORTON Department: Room: Gender: F Incoming Inspector: : 1965 Requested By: GIOVANNY ADAM Order Number: [id number] Reading MD: Grzegorz Holcomb MD Measurements Intervals [place] Rate: 74 P: 41 SC: 142 QRS: -8 QRSD: 82 T: 52 QT: 402 QTc: 447 Interpretive Statements SINUS RHYTHM Electronically Signed On 12-08-2018 14:33:53 CDT by Grzegorz Holcomb MD
== END 2018-11-27 11:04 | disposition home or self-care (01) ==
LOC: ER 08:58
DX: M94.0 Chondrocostal junction syndrome [Tietze] (principal); M54.6 Pain in thoracic spine; E03.9 Hypothyroidism, unspecified; F17.210 Nicotine dependence, cigarettes, uncomplicated; Z90.710 Acquired absence of both cervix and uterus
CPT/HCPCS: 36415; 71045; 80053; 83735; 83880; 84484; 85025; 85379; 93005; 96374; 99285; J1885; J7030

== ENCOUNTER 2019-07-19 17:31 | Emergency (ER) | payer BC ==
[~2019-07-19] VITALS: Ht 160 cm; Wt 76.0 kg
[~2019-07-19 17:31] MED LIST changes: +DICL50TA4 PO; +METH4TAB2 PO
[2019-07-19 17:38] VITALS: BP 129/77
[2019-07-19] MEDS ORDERED: LORazepam 1 MG TABLET PO ONE (18:45)
[2019-07-19] MEDS ORDERED: SMZ/TMP 800/160MG TABLET. PO ONE ×2 (19:06→19:15)
[2019-07-19] MEDS ORDERED: SULF1TAB24 PO (19:10)
--- NOTE | 2019-07-19 19:10 | PHYS DOC ---
Past History Past Medical History: Depression, Hypothyroid Past Surgical History: Cholecystectomy, Hysterectomy, Tonsillectomy Additional Past Surgical Histo: bariatric surgery Smoking: Cigarettes Alcohol Use: Rarely Drug Use: None General Adult EDM: Chief Complaint: SKIN RASH/ABSCESS HPI: HPI: 54-year-old female presents with right axillary abscess. It is been growing for the last 3 days. It is now quite painful and she knows that likely needs to be drained. She denies fever chills. She has no other complaints at this time. Review of Systems: Review of Systems: Constitutional: Denies fever or chills Eyes: Denies change in visual acuity HENT: Denies nasal congestion or sore throat Respiratory: Denies cough or shortness of breath Cardiovascular: Denies chest pain or edema GI: Denies abdominal pain, nausea, vomiting, bloody stools or diarrhea : Denies dysuria Musculoskeletal: Denies back pain or joint pain Integument: Abscess right axilla Neurologic: Denies headache, focal weakness or sensory changes Endocrine: Denies polyuria or polydipsia Lymphatic: Denies swollen glands Psychiatric: Denies depression or anxiety Heart Score: Risk Factors: Risk Factors: DM, Current or recent (<one month) smoker, HTN, HLP, family history of CAD, obesity. Risk Scores: Score 0 - 3: 2.5% MACE over next 6 weeks - Discharge Home Score 4 - 6: 20.3% MACE over next 6 weeks - Admit for Clinical Observation Score 7 - 10: 72.7% MACE over next 6 weeks - Early Invasive Strategies Current Medications: Current Meds: Current Medications Medications (Trade) Dose Ordered Sig/[facility] Start Time Stop Time Status Last Admin Dose Admin Lorazepam (Ativan) 1 mg 1X ONCE 07/19/19 18:45 07/19/19 18:51 DC 07/19/19 18:42 1 MG Allergies: Allergies: Allergies Coded Allergies Type Severity Reaction Last Updated Verified No Known Drug Allergies 01/03/16 No Physical Exam: PE: Constitutional: Well developed, well nourished, no acute distress, non-toxic appearance. [] HENT: Normocephalic, atraumatic, bilateral external ears normal, oropharynx moist, no oral exudates, nose normal. [] Eyes: PERRLA, EOMI, conjunctiva normal, no discharge. [] Neck: Normal range of motion, no tenderness, supple, no stridor. [] Cardiovascular: Heart rate regular rhythm, no murmur [] Lungs & Thorax: Bilateral breath sounds clear to auscultation [] Abdomen: Bowel sounds normal, soft, no tenderness, no masses, no pulsatile masses. [] Skin: 2.5 cm fluctuant abscess of the right axilla with 3 cm surrounding cellulitis. [] Back: No tenderness, no CVA tenderness. [] Extremities: No tenderness, no cyanosis, no clubbing, ROM intact, no edema. [] Neurologic: Alert and oriented X 3, normal motor function, normal sensory function, no focal deficits noted. [] Psychologic: Affect normal, judgement normal, mood anxious. [] Current Patient Data: Vital Signs: Vital Signs Date Time Temp Pulse Resp B/P (MAP) Pulse Ox O2 Delivery O2 Flow Rate FiO2 07/19/19 17:38 98.2 98 16 129/77 (94) 98 Room Air EKG: EKG: [] Radiology/Procedures: Radiology/Procedures: [] Course & Med Decision Making: Course & Med Decision Making Pertinent Labs and Imaging studies reviewed. (See chart for details) The patient had an obvious abscess. I was able to drain it. See note below for details. I will treat her with 7 days of Bactrim. The wound culture was sent. [] Randal Disclaimer: Randal Disclaimer: This electronic medical record was generated, in whole or in part, using a voice recognition dictation system. Incision and Drainage Indication: Cellulitis and abscess of the right axilla. Procedure: Verbal consent was obtained from the patient for incision and drainage of her right axillary abscess. The skin was cleaned with alcohol. The area was anesthetized with 1% lidocaine. 2 cc was used. A 4 mm incision was made with an 11 blade scalpel. There was expression of purulent material. A wound culture was obtained. I explored the abscess and broke up loculations with a sterile Q-tip. Further purulent material was expressed. A clean dressing was applied over the wound. Patient will be given her first dose of Bactrim in the ED. The patient tolerated the procedure well. Complications: None. Departure Departure: Impression: Primary Impression: Abscess of axilla, right Disposition: 01 HOME/RESIDENCE PRIOR TO ADM Condition: STABLE Referrals: JOSEMANUEL KNAPP (PCP) Patient Instructions: Abscess, [id number] Scripts Sulfamethoxazole/Trimethoprim (BACTRIM DS TABLET) 1 Each Tablet 1 TAB PO BID for abscess for 7 Days, #14 TAB 0 Refills Prov: FINN VILLEGAS DO 07/19/19 FINN VLILEGAS DO July 19, 2019 19:10
== END 2019-07-19 19:15 | disposition home or self-care (01) ==
LOC: ER 17:31
DX: L02.411 Cutaneous abscess of right axilla (principal); E03.9 Hypothyroidism, unspecified; F17.210 Nicotine dependence, cigarettes, uncomplicated
CPT/HCPCS: 10060; 87070; 99283

== ENCOUNTER → 2020-03-31 | Outpatient (CLI) | payer BC ==
[~2020-03-31] MED LIST changes: +SULF1TAB24 PO
[2020-03-31 14:24] LABS: FREE T4 1.36 ng/dL (0.76-1.46)
[2020-03-31 14:25] LABS: THYROID STIM HORMONE (TSH) 0.021 uIU/mL (0.358-3.740)
== END ==
LOC: LAB 09:41
PROVIDERS: ATTEND Family Medicine
DX: E03.9 Hypothyroidism, unspecified (principal)
CPT/HCPCS: 84439; 84443

== ENCOUNTER 2020-11-17 18:09 | Emergency (ER) | payer BC ==
[~2020-11-17] VITALS: Ht 160 cm; Wt 93.0 kg
[2020-11-17] MEDS ORDERED: IV NORMAL SALINE 1,000ML 1,000 ML IV ONE (18:45)
[2020-11-17] MEDS ORDERED: MORPHINE SULFATE 2 MG/ML DISP.SYRIN. IV ONE (18:45)
[2020-11-17] MEDS ORDERED: IOHEXOL 300 MG/ML 75 ML VIAL. IV ONE (19:00)
[2020-11-17 19:06] LABS: BASO % 0 % (0-3); EOS % 0 % (0-3); HEMATOCRIT 39.9 % (36.0-47.0); HEMOGLOBIN 13.3 g/dL (12.0-15.5); LYMPH # 1.9 x10^3/uL (1.0-4.8); LYMPH % 28 % (24-48); MEAN CORPUSCULAR HEMOGLOBIN 28 pg (25-35); MEAN CORPUSCULAR HGB CONC 33 g/dL (31-37); MEAN CORPUSCULAR VOLUME 84 fL (79-100); MONO % 15 % (0-9); NEUT # 3.8 x10^3uL (1.8-7.7); NEUT % 56 % (31-73); PLATELET COUNT 201 x10^3/uL (140-400); RED BLOOD COUNT 4.77 x10^6/uL (3.50-5.40); RED CELL DISTRIBUTION WIDTH 13.7 % (11.5-14.5); WHITE BLOOD COUNT 6.8 x10^3/uL (4.0-11.0)
[2020-11-17 19:22] LABS: CALCIUM 8.9 mg/dL (8.5-10.1); CREATININE 1.1 mg/dL (0.6-1.0); GFR 51.4; POTASSIUM 3.9 mmol/L (3.5-5.1)
[2020-11-17 19:28] LABS: ALBUMIN 3.5 g/dL (3.4-5.0); ALBUMIN/GLOBULIN RATIO 1.2 (1.0-1.7); DIRECT BILIRUBIN 0.1 mg/dL (0.0-0.2); TOTAL BILIRUBIN 0.3 mg/dL (0.2-1.0); TOTAL PROTEIN 6.5 g/dL (6.4-8.2)
--- NOTE | 2020-11-17 19:32 | RAD ---
CT abdomen and pelvis with contrast PQRS statement: CT scans at this facility use dose reduction including either automated exposure cont rol, iterative reconstructions, and /or weight based radiation dosing via mA and kV modification when appropriate to reduce radiation dose to as low as reasonably achievable. HISTORY: Abdominal pain. Contrast: 75 mL Omnipaque 350 intravenous contrast. Abdomen findings: Biliary ductal dilation most likely due to cholecystectomy. Lung bases unremarkable . Lower lumbar disc disease. Postoperative change of partial vertical sleeve gastrectomy. Small slidi ng hiatal hernia gastroesophageal junction. Kidneys, adrenals, pancreas, spleen and liver are unremar kable. Fluid throughout the large bowel. No obstruction or inflammation the GI tract. No abdominal fl uid or adenopathy. Mild asymmetric right lower quadrant ileocolic mesenteric lymph nodes largest priyanka uring 9 mm. Pelvis findings: Hysterectomy. Ovaries absent. Pelvic phleboliths. Fluid within the rectosigmoid. Tima dder and bones are unremarkable. No fluid or adenopathy in the pelvis. IMPRESSION: 1. Fluid throughout the large bowel could indicate diarrhea. No obstruction or inflammatory changes o f the GI tract. 2. Mild asymmetric increased in number subcentimeter right lower quadrant ileocolic mesenteric lymph nodes could be reactive lymph nodes or sequela of mesenteric adenitis. 3. Small sliding hiatal hernia of the gastroesophageal junction. Electronically signed by: Babak Mary MD (11/17/2020 7:29 PM) [facility]
--- NOTE | 2020-11-17 19:48 | PHYS DOC ---
Past History Past Medical History: Depression, Hypothyroid Additional Past Medical Histor: Pancreatitis 2019 (KT LOMELI) Past Surgical History: Cholecystectomy, Hysterectomy, Tonsillectomy Additional Past Surgical Histo: gastric sleeve ([facility] LOMELI) Smoking: Cigarettes Alcohol Use: None Drug Use: None (KT LOMELI) General Adult EDM: Chief Complaint: ABDOMINAL PAIN Problems: (1) Abdominal pain (2) Diarrhea (KT LOMELI) HPI: HPI: Patient is a 55 year old female who presents with 2-day history of abdominal pain. Patient states her symptoms began yesterday morning when she ate a breakfast burrito. She reports associated bloating and nonbloody diarrhea. She describes the pain as intermittent cramping and tightness. She reports she has had about 10 episodes of diarrhea since her symptom onset. She denies nausea, vomiting, bloody stool, dysuria, hematuria. Patient had an episode of pancreatitis as a result of EtOH use disorder few years ago, but has since quit drinking. Patient reports a surgical history of cholecystectomy and gastric sleeve. She has no other complaints at this time. (KT LOMELI) Review of Systems: Review of Systems: Constitutional: Denies fever or chills Respiratory: Denies cough or shortness of breath Cardiovascular: Denies chest pain or edema GI: See HPI : See HPI Integument: Denies rash, abrasion Neurologic: Denies headache, focal weakness or sensory changes (KT LOMELI) Current Medications: Current Meds: Current Medications Medications (Trade) Dose Ordered Sig/[facility] Start Time Stop Time Status Last Admin Dose Admin Iohexol (Omnipaque 300 Mg/ml) 75 ml 1X ONCE 11/17/20 19:00 11/17/20 19:01 DC 11/17/20 19:12 75 ML Morphine Sulfate (Morphine 2mg Syringe) 2 mg 1X ONCE 11/17/20 18:45 11/17/20 18:46 DC Sodium Chloride 1,000 ml @ 1,000 mls/hr 1X ONCE 11/17/20 18:45 11/17/20 19:44 (KT LOMELI) Allergies: Allergies: Allergies Coded Allergies Type Severity Reaction Last Updated Verified No Known Drug Allergies 11/17/20 No (KT LOMELI) Physical Exam: PE: Constitutional: Well developed, well nourished, no acute distress, non-toxic appearance. [] HENT: Normocephalic, atraumatic, bilateral external ears normal, oropharynx moist, no oral exudates, nose normal. [] Eyes: PERRLA, EOMI, conjunctiva normal, no discharge. [] Neck: Normal range of motion, no tenderness, supple, no stridor. [] Cardiovascular:Heart rate regular rhythm, no murmur [] Lungs & Thorax: Bilateral breath sounds clear to auscultation [] Abdomen: Bowel sounds normal, soft, no tenderness, no masses, no pulsatile masses. [] Skin: Warm, dry, no erythema, no rash. [] Back: No tenderness, no CVA tenderness. [] Extremities: No tenderness, no cyanosis, no clubbing, ROM intact, no edema. [] Neurologic: Alert and oriented X 3, normal motor function, normal sensory function, no focal deficits noted. [] Psychologic: Affect normal, judgement normal, mood normal. [] (KT LOMELI) Current Patient Data: Labs: Laboratory Tests Test 11/17/20 18:50 White Blood Count 6.8 x10^3/uL (4.0-11.0) Red Blood Count 4.77 x10^6/uL (3.50-5.40) Hemoglobin 13.3 g/dL (12.0-15.5) Hematocrit 39.9 % (36.0-47.0) Mean Corpuscular Volume 84 fL (79-100) Mean Corpuscular Hemoglobin 28 pg (25-35) Mean Corpuscular Hemoglobin Concent 33 g/dL (31-37) Red Cell Distribution Width 13.7 % (11.5-14.5) Platelet Count 201 x10^3/uL (140-400) Neutrophils (%) (Auto) 56 % (31-73) Lymphocytes (%) (Auto) 28 % (24-48) Monocytes (%) (Auto) 15 % (0-9) H Eosinophils (%) (Auto) 0 % (0-3) Basophils (%) (Auto) 0 % (0-3) Neutrophils # (Auto) 3.8 x10^3uL (1.8-7.7) Lymphocytes # (Auto) 1.9 x10^3/uL (1.0-4.8) Monocytes # (Auto) 1.0 x10^3/uL (0.0-1.1) Eosinophils # (Auto) 0.0 x10^3/uL (0.0-0.7) Basophils # (Auto) 0.0 x10^3/uL (0.0-0.2) Sodium Level 140 mmol/L (136-145) Potassium Level 3.9 mmol/L (3.5-5.1) Chloride Level 106 mmol/L (98-107) Carbon Dioxide Level 25 mmol/L (21-32) Anion Gap 9 (6-14) Blood Urea Nitrogen 14 mg/dL (7-20) Creatinine 1.1 mg/dL (0.6-1.0) H Estimated GFR (Cockcroft-Gault) 51.4 BUN/Creatinine Ratio 13 (6-20) Glucose Level 87 mg/dL (70-99) Calcium Level 8.9 mg/dL (8.5-10.1) Total Bilirubin 0.3 mg/dL (0.2-1.0) Direct Bilirubin 0.1 mg/dL (0.0-0.2) Aspartate Amino Transferase (AST) 109 U/L (15-37) H Alanine Aminotransferase (ALT) 77 U/L (14-59) H Alkaline Phosphatase 216 U/L (46-116) H Total Protein 6.5 g/dL (6.4-8.2) Albumin 3.5 g/dL (3.4-5.0) Albumin/Globulin Ratio 1.2 (1.0-1.7) Lipase 106 U/L (73-393) Vital Signs: Vital Signs Date Time Temp Pulse Resp B/P (MAP) Pulse Ox O2 Delivery O2 Flow Rate FiO2 11/17/20 18:15 98.1 86 20 139/89 (106) 98 Room Air (KT LOMELI) EKG: EKG: [] (KT LOMELI) Radiology/Procedures: Radiology/Procedures: PROCEDURE: CT ABD PELV W/ IV CONTRST ONLY CT abdomen and pelvis with contrast PQRS statement: CT scans at this facility use dose reduction including either automated exposure control, iterative reconstructions, and /or weight based radiation dosing via mA and kV modification when appropriate to reduce radiation dose to as low as reasonably achievable. HISTORY: Abdominal pain. Contrast: 75 mL Omnipaque 350 intravenous contrast. Abdomen findings: Biliary ductal dilation most likely due to cholecystectomy. Lung bases unremarkable. Lower lumbar disc disease. Postoperative change of partial vertical sleeve gastrectomy. Small sliding hiatal hernia gastroesophageal junction. Kidneys, adrenals, pancreas, spleen and liver are unremarkable. Fluid throughout the large bowel. No obstruction or inflammation the GI tract. No abdominal fluid or adenopathy. Mild asymmetric right lower quadrant ileocolic mesenteric lymph nodes largest measuring 9 mm. Pelvis findings: Hysterectomy. Ovaries absent. Pelvic phleboliths. Fluid within the rectosigmoid. Bladder and bones are unremarkable. No fluid or adenopathy in the pelvis. IMPRESSION: 1. Fluid throughout the large bowel could indicate diarrhea. No obstruction or inflammatory changes of the GI tract. 2. Mild asymmetric increased in number subcentimeter right lower quadrant ileocolic mesenteric lymph nodes could be reactive lymph nodes or sequela of mesenteric adenitis. 3. Small sliding hiatal hernia of the gastroesophageal junction. Electronically signed by: Babak Mary MD (11/17/2020 7:29 PM) [facility] ([facility] Heart Score: C/O Chest Pain: No (KT LOMELI) Course & Med Decision Making: Course & Med Decision Making Pertinent Labs and Imaging studies reviewed. (See chart for details) Patient history and presentation is nonspecific and could be due to a number of abdominal pathologies. Patient has already had her gallbladder removed, so cholestasis is not a concern. Blood work will be drawn and an abdominal CT with IV contrast only will be ordered to evaluate abdominal pathology. Patient's lab work shows some elevated liver enzymes, which is consistent with a history of alcohol use disorder. Patient was informed of her lab findings and that they are nonemergent. The elevated liver enzymes are likely unrelated to her current abdominal pain, as CT scan also showed small intestine inflammation and fluid. She was informed that for her gastroenteritis, supportive treatment is the best option. She should be sure to drink plenty of fluids and implement the BRAT diet until her symptoms improve. She can follow-up with her primary care provider regarding her elevated liver enzymes. Patient is much more comfortable after receiving morphine, and is comfortable going home. (KT LOMELI) Dragon Disclaimer: Dragon Disclaimer: This electronic medical record was generated, in whole or in part, using a voice recognition dictation system. (KT LOMELI) Attending Co-Sign The patient was seen and interviewed as well as examined at the bedside. The chart was reviewed. The case was discussed. Agree with the plan of care. (FINN VILLEGAS DO) Departure Departure: Impression: Primary Impression: Gastroenteritis Additional Impression: Elevated liver enzymes Disposition: HOME / SELF CARE / HOMELESS Condition: STABLE Referrals: TELMA BARTH MD (PCP) Patient Instructions: Viral Gastroenteritis, [id number] Additional Instructions: Be sure to keep drinking plenty of clear fluids and eat a bland diet until your symptoms improve, at which time you may resume eating normally. You may use [id number] antidiarrheal medications as directed. Please follow-up with your primary care provider regarding elevated liver enzymes. They will be able to provide you further evaluation and management. K[facility] LOMELI Nov 17, 2020 19:48 FINN VILLEGAS DO Nov 18, 2020 02:07
[2020-11-17 20:43] VITALS: BP 161/96
== END 2020-11-17 20:50 | disposition home or self-care (01) ==
LOC: ER 18:09
DX: K52.9 Noninfective gastroenteritis and colitis, unspecified (principal); R74.8 Abnormal levels of other serum enzymes; F17.210 Nicotine dependence, cigarettes, uncomplicated; Z90.49 Acquired absence of other specified parts of digestive tract; Z90.710 Acquired absence of both cervix and uterus
CPT/HCPCS: 36415; 74177; 80053; 80076; 83690; 85025; 96361; 96374; 99285; J2270; J7030; Q9967